=== PATIENT | female | born 1985 | race Caucasian/White ===

== ENCOUNTER 2017-12-23 09:08 | Emergency (ER) | payer MEDICAID, OTHER ==
[~2017-12-23] VITALS: Ht 142.2 cm; Wt 82.1 kg
[2017-12-23 09:10] VITALS: BP 148/96
[2017-12-23] MEDS ORDERED: MAALOX/HYOSCYAMINE/LIDOCAINE 45 ML BTL ONE (10:42)
[2017-12-23] MEDS ORDERED: MAALOX/HYOSCYAMINE/LIDOCAINE 45 ML BTL PO ONE (11:00)
== END 2017-12-23 10:58 | disposition home or self-care (01) ==
LOC: ED 10:55
DX: R68.84 Jaw pain (principal); R51 Headache; K08.89 Other specified disorders of teeth and supporting structures
CPT/HCPCS: 99283

== ENCOUNTER 2020-12-10 22:23 | Emergency (ER) | payer MEDICAID ==
[~2020-12-10] VITALS: Ht 147.3 cm; Wt 90.7 kg
[2020-12-10 22:27] VITALS: BP 175/108
--- NOTE | 2020-12-10 23:15 | NUR ---
[id number] to find
== END 2020-12-10 23:32 ==
LOC: ED 22:45
DX: K02.9 Dental caries, unspecified (principal); Z76.0 Encounter for issue of repeat prescription; K08.89 Other specified disorders of teeth and supporting structures
CPT/HCPCS: 99283